=== PATIENT | male | born 1995 ===

== ENCOUNTER 2018-08-06 15:05 | Emergency (ER) | payer SELFPAY ==
[2018-08-06 15:07] VITALS: RESP 18; TEMP 98.2; BMI 21.9
[2018-08-06] MEDS ORDERED: TDAP Vaccine 0.5 mL Syr IM ONE (15:22)
[2018-08-06] MEDS ORDERED: Absorbable Gelatin Sponge Size 12-7 MM STA (15:22)
[2018-08-06] MEDS ORDERED: Naproxen 550 mg Tab PO STA (15:30)
--- NOTE | 2018-08-06 15:32 | ED PDOC ---
Arrival/HPI - General Historian: Patient - History of Present Illness Narrative History of Present Illness (Text): 08/06/18 15:37 22 yo M c/o skin avulsion to the distal tip of the L thumb when he was using a knife to cook. Otherwise the patient reports no numbness, decrease in range of motion or any other injuries. <Latisha Turpin PA-C - Last Filed: 08/06/18 15:29> <Sandoval Vaac - Last Filed: 08/06/18 17:03> - General Chief Complaint: Abnormal Skin Integrity Time Seen by Provider: 08/06/18 15:06 Past Medical History - Psychiatric Hx Substance Use: No <Latisha Turpin PA-C - Last Filed: 08/06/18 15:29> Family/Social History Family/Social History: No Known Family HX Smoking Status: Never Smoked Hx Alcohol Use: No Hx Substance Use: No <Latisha Turpin PA-C - Last Filed: 08/06/18 15:29> Allergies/Home Meds <Latisha Turpin PA-C - Last Filed: 08/06/18 15:29> <Sandoval Vaca - Last Filed: 08/06/18 17:03> Allergies/Adverse Reactions: Allergies No Known Allergies Allergy (Verified 08/06/18 15:16) Review of Systems - Review of Systems Constitutional: absent: Fatigue, Fevers Musculoskeletal: absent: Arthralgias, Back Pain, Neck Pain Skin: Other (+skin avulsion). absent: Rash, Pruritis, Skin Lesions <Latisha Turpin PA-C - Last Filed: 08/06/18 15:29> Physical Exam Vital Signs Temp Pulse Resp BP Pulse Ox 08/06/18 15:06 98.2 F 58 L 18 120/73 100 Temperature: Afebrile Blood Pressure: Normal Pulse: Regular Respiratory Rate: Normal Appearance: Positive for: Well-Appearing, Non-Toxic, Comfortable Pain Distress: Mild Mental Status: Positive for: Alert and Oriented X 3 - Systems Exam Upper Extremity: Present: Normal ROM, NORMAL PULSES, Neurovascularly Intact, Capillary Refill < 2s, Norm 2-Pt Discrimination, Other (+2 cm skin avulsion to the distal tip of the L thumb). No: Edema, Tenderness, Swelling, Erythema, Temperature Abnormalties Neurological: Present: GCS=15, CN II-XII Intact, Speech Normal Skin: Present: Warm, Dry, Normal Color. No: Rashes Psychiatric: Present: Alert, Oriented x 3, Normal Insight, Normal Concentration <Latisha Turpin PA-C - Last Filed: 08/06/18 15:29> Vital Signs Temp Pulse Resp BP Pulse Ox 08/06/18 16:28 60 18 118/70 98 08/06/18 15:06 98.2 F 58 L 18 120/73 100 <Sandoval Vaca - Last Filed: 08/06/18 17:03> Medical Decision Making ED Course and Treatment: 08/06/18 15:32 Plan : - tdap IM - naprosyn PO - keflex PO - gelfoam Wound cleaned and irrigated. Gel foam and clean dressing applied. Advised to follow up with referral physician in 1-2 days without fail. Advised to take medication as prescribed. Return to the emergency room at any time for any new or worsening symptoms. Patient states he fully agrees with and understands discharge instructions. States that he agrees with the plan and disposition. Verbalized and repeated discharge instructions and plan. I have given the patient opportunity to ask any additional questions. - Medication Orders Current Medication Orders: Discontinued Medications Gelatin (Gelfoam Size 12-7) 1 spg MM STAT STA Stop: 08/06/18 15:23 Tetanus/Reduced Diphtheria/Acell Pertussis (Boostrix Vaccine Inj) 0.5 ml IM .ONCE ONE Stop: 08/06/18 15:23 <Latisha Turpin PA-C - Last Filed: 08/06/18 15:29> - Medication Orders Current Medication Orders: Discontinued Medications Cephalexin Monohydrate (Keflex) 500 mg PO STAT STA; Protocol Stop: 08/06/18 15:31 Last Admin: 08/06/18 16:05 Dose: 500 mg Gelatin (Gelfoam Size 12-7) 1 spg MM STAT STA Stop: 08/06/18 15:23 Last Admin: 08/06/18 16:27 Dose: Not Given Non-Admin Reason: used by MYRA Naproxen (Anaprox Ds) 550 mg PO ONCE STA Stop: 08/06/18 15:31 Last Admin: 08/06/18 16:05 Dose: 550 mg Tetanus/Reduced Diphtheria/Acell Pertussis (Boostrix Vaccine Inj) 0.5 ml IM .ONCE ONE Stop: 08/06/18 15:23 Last Admin: 08/06/18 16:06 Dose: 0.5 ml Immunization Registry Document 08/06/18 16:06 GMD (Rec: 08/06/18 16:06 GMD [id number]) [facility]-Date provided 08/06/18 <Sandoval Vaca - Last Filed: 08/06/18 17:03> - PA / CONCRETE FENCE BUILDER / Resident Statement ALEXA has reviewed & agrees with the documentation as recorded. <Latisha Turpin PA-C - Last Filed: 08/06/18 15:29> - PA / CONCRETE FENCE BUILDER / Resident Statement ALEXA has reviewed & agrees with the documentation as recorded. <Sandoval Vaca - Last Filed: 08/06/18 17:03> Disposition/Present on Arrival - Present on Arrival Any Indicators Present on Arrival: No History of DVT/PE: No History of Uncontrolled Diabetes: No Urinary Catheter: No History of Decub. Ulcer: No History Surgical Site Infection Following: None - Disposition Have Diagnosis and Disposition been Completed?: Yes Disposition Time: 15:20 Patient Plan: Discharge <Latisha Turpin PA-C - Last Filed: 08/06/18 15:29> <Sandoval Vaca - Last Filed: 08/06/18 17:03> - Disposition Diagnosis: Avulsion of skin of thumb Disposition: HOME/ ROUTINE Condition: STABLE Discharge Instructions (ExitCare): Wound Care, Common Finger Injuries Print Language: ICELANDIC Additional Instructions: Thank you for letting us take care of you today. You were treated for skin av ulsion thumb. The emergency medical care you received today was directed at your acute symptoms. If you were prescribed any medication, please fill it and take as directed. It may take several days for your symptoms to resolve. Return to the Emergency Department if your symptoms worsen, do not improve, or if you have any other problems. Please contact your doctor in 2 days for re-evaluation and follow up / or call one of the physicians/clinics you have been referred to that are listed on the Patient Visit Information form that is included in your discharge packet. Bring any paperwork you were given at discharge with you along with any medications you are taking to your follow up visit. Our treatment cannot replace ongoing medical care by a primary care provider (PCP) outside of the emergency department. Thank you for allowing the [facility] team to be part of your care today. Prescriptions: Cephalexin [Keflex] 500 mg PO Q6 #28 capsule Referrals: at [facility] [place] [Outside] - Follow up with primary FAMILY PROVIDER,NO [Primary Care Provider] - Follow up with primary Raffi Segovia MD [Staff Provider] - Follow up with primary Forms: [employer] (Kyrgyz), WORK NOTE
[2018-08-06 16:29] VITALS: BP 118/70; PULSE 60; O2SAT 98
== END 2018-08-06 16:29 | disposition home or self-care (01) ==
LOC: ED 15:05
DX: S61.102A Unspecified open wound of left thumb with damage to nail, initial encounter (principal); W26.0XXA Contact with knife, initial encounter; Y93.G3 Activity, cooking and baking; Z23 Encounter for immunization